=== PATIENT | female | born 1965 | race Caucasian/White ===

== ENCOUNTER 2019-07-17 09:56 | Outpatient (CLI) | payer OTHER, SELFPAY ==
[2019-07-17 10:36] LABS: Basophils Percent Auto 0.7 % (0.2-1.2); Eosinophils Absolute Auto 0.1 K/mm3 (0-0.3); Eosinophils Percent Auto 1.5 % (0-4.4); Hematocrit 40.9 % (37.0-47.0); Hemoglobin 13.6 g/dL (12.0-15.0); Immature Granulocyte Absolute 0.01 K/mm3 (0.00-0.031); Immature Granulocyte Percent A 0.2 % (0-0.5); Lymphocytes Absolute Auto 1.41 K/mm3 (0.9-3.2); Lymphocytes Percent Auto 34.9 % (18.3-44.2); Mean Corpuscular HGB Conc 33.3 g/dl (32-36); Mean Corpuscular Volume 87.2 fl (80-100); Mean Platelet Volume 10.1 fl (7.4-10.4); Monocytes Absolute Auto 0.4 K/mm3 (0.1-0.6); Monocytes Percent Auto 9.4 % (2.6-8.5); Neutrophils Absolute Auto 2.2 K/mm3 (1.3-6.7); Neutrophils Percent Auto 53.3 % (45.5-73.1); Platelet Count Result 276 k/mm3 (150-375); Red Blood Count 4.69 M/mm3 (4.2-5.4)
[2019-07-17 10:48] LABS: Alanine Aminotransferase 23 U/L (4-35); Albumin Level 4.4 g/dL (3.5-5.1); Alkaline Phosphatase 78 U/L (38-126); Aspartate Amino Transferase 23 U/L (14-36); Bilirubin,Total 0.4 mg/dL (0.2-1.3); Blood Urea Nitrogen 13 mg/dL (7-17); Calcium 9.6 mg/dL (8.4-10.2); Carbon Dioxide 29 mmol/L (22-30); Chloride 99 mmol/L (98-107); Cholesterol 211 mg/dL (0-200); Estimated Glomerular Filt Rate > 60; Glucose 90 mg/dL (65-105); HDL Direct 67 mg/dL; Potassium 3.9 mmol/L (3.4-5.0); Sodium 137 mmol/L (137-145); Triglycerides 40 mg/dL (<150)
[2019-07-17 10:49] LABS: Add Urine Microscopic? YES; Appearance Urine Clear (Clear); Bacteria Urine Trace /hpf; Bilirubin Urine Negative (Negative); Blood Urine Negative (Negative); Color Urine Straw (Yellow); Glucose Urine UA Negative (Negative); Ketones Urine Negative (Negative); Leukocyte Esterase Ur 2+ LEU/UL (NEGATIVE); Nitrate Urine Negative (Negative); Protein Urine Negative (Negative); RBC Urine 0-2 /hpf (0-2); Specific Grav Ur 1.008 (1.001-1.035); Squamous Epithelial Cell Urine Rare /hpf (Few); Urobilinogen Urine Negative mg/dL (<2.0)
[2019-07-17 10:59] LABS: LDL Cholesterol Direct 109 mg/dL
[2019-07-17 11:19] LABS: Total Triiodothyronine (T3) 1.36 NG/ML (0.97-1.69)
[2019-07-17 11:36] LABS: Free T4 Free Thyroxine 1.45 ng/mL (0.78-2.19); Vitamin D 25 Hydroxy 36.7 ng/mL
== END 2019-07-17 09:57 | disposition home or self-care (01) ==
DX: Z00.00 Encounter for general adult medical examination without abnormal findings (principal); I10 Essential (primary) hypertension
CPT/HCPCS: 36415; 80053; 80061; 81001; 82306; 84439; 84443; 84480; 85025; 86038

== ENCOUNTER 2020-02-09 06:54 | Outpatient (CLI) | payer OTHER, SELFPAY ==
[2020-02-09 07:34] LABS: Basophils Percent Auto 0.6 % (0.2-1.2); Eosinophils Absolute Auto 0.1 K/mm3 (0-0.3); Eosinophils Percent Auto 1.6 % (0-4.4); Hematocrit 40.8 % (37.0-47.0); Immature Granulocyte Absolute 0.02 K/mm3 (0.00-0.031); Immature Granulocyte Percent A 0.4 % (0-0.5); Lymphocytes Absolute Auto 1.67 K/mm3 (0.9-3.2); Lymphocytes Percent Auto 33.7 % (18.3-44.2); Mean Corpuscular HGB Conc 34.3 g/dl (32-36); Mean Corpuscular Hemoglobin 29.2 pg (26-34); Mean Corpuscular Volume 85.2 fl (80-100); Mean Platelet Volume 10.1 fl (7.4-10.4); Monocytes Absolute Auto 0.5 K/mm3 (0.1-0.6); Monocytes Percent Auto 9.9 % (2.6-8.5); Neutrophils Absolute Auto 2.7 K/mm3 (1.3-6.7); Neutrophils Percent Auto 53.8 % (45.5-73.1); Platelet Count Result 294 k/mm3 (150-375); Red Blood Count 4.79 M/mm3 (4.2-5.4); Red Cell Distribution Width 12.7 % (11.5-14.5)
[2020-02-09 07:38] LABS: Add Urine Microscopic? YES; Appearance Urine Clear (Clear); Bilirubin Urine Negative (Negative); Blood Urine Negative (Negative); Color Urine Colorless (Yellow); Glucose Urine UA Negative (Negative); Ketones Urine Trace mg/dL (Negative); Leukocyte Esterase Ur 1+ LEU/UL (NEGATIVE); Mucus Urine Rare /lpf; Nitrate Urine Negative (Negative); Protein Urine Negative (Negative); RBC Urine 0-2 /hpf (0-2); Specific Grav Ur 1.008 (1.001-1.035); Squamous Epithelial Cell Urine Rare /hpf (Few); Urobilinogen Urine Negative mg/dL (<2.0); WBC Urine 0-3 /hpf (0-3)
[2020-02-09 07:44] LABS: Alanine Aminotransferase 23 U/L (4-35); Albumin Level 4.3 g/dL (3.5-5.1); Alkaline Phosphatase 84 U/L (38-126); Anion Gap 9 mmol/L (8-16); Aspartate Amino Transferase 24 U/L (14-36); Bilirubin,Total 0.1 mg/dL (0.2-1.3); Blood Urea Nitrogen 18 mg/dL (7-17); Calcium 9.5 mg/dL (8.4-10.2); Carbon Dioxide 27 mmol/L (22-30); Chloride 102 mmol/L (98-107); Cholesterol 186 mg/dL (0-200); Estimated Glomerular Filt Rate > 60; Glucose 92 mg/dL (65-105); HDL Direct 65 mg/dL; Potassium 4.1 mmol/L (3.4-5.0); Sodium 138 mmol/L (137-145); Triglycerides 41 mg/dL (<150)
[2020-02-09 07:55] LABS: LDL Cholesterol Direct 91 mg/dL
[2020-02-09 08:17] LABS: Free T4 Free Thyroxine 1.32 ng/mL (0.78-2.19)
== END 2020-02-09 06:55 | disposition home or self-care (01) ==
DX: I10 Essential (primary) hypertension (principal)
CPT/HCPCS: 36415; 80053; 80061; 81001; 84439; 84443; 85025

== ENCOUNTER 2020-12-16 08:00 | Outpatient (CLI) | payer OTHER, SELFPAY ==
[2020-12-16 09:50] LABS: Basophils Absolute Auto 0.1 K/mm3 (0.0-0.1); Eosinophils Absolute Auto 0.1 K/mm3 (0-0.3); Eosinophils Percent Auto 1.7 % (0-4.4); Hematocrit 41.1 % (37.0-47.0); Hemoglobin 13.7 g/dL (12.0-15.0); Immature Granulocyte Absolute 0.01 K/mm3 (0.00-0.031); Immature Granulocyte Percent A 0.2 % (0-0.5); Lymphocytes Absolute Auto 1.62 K/mm3 (0.9-3.2); Mean Corpuscular HGB Conc 33.3 g/dl (32-36); Mean Corpuscular Hemoglobin 29.1 pg (26-34); Mean Corpuscular Volume 87.3 fl (80-100); Mean Platelet Volume 11.1 fl (7.4-10.4); Monocytes Absolute Auto 0.4 K/mm3 (0.1-0.6); Monocytes Percent Auto 9.2 % (2.6-8.5); Neutrophils Absolute Auto 2.6 K/mm3 (1.3-6.7); Neutrophils Percent Auto 53.9 % (45.5-73.1); Platelet Count Result 253 k/mm3 (150-375); Red Blood Count 4.71 M/mm3 (4.2-5.4); Red Cell Distribution Width 13.6 % (11.5-14.5); White Blood Count 4.8 K/mm3 (4.5-10.0)
[2020-12-16 09:56] LABS: Add Urine Microscopic? YES; Appearance Urine Clear (Clear); Bilirubin Urine Negative (Negative); Blood Urine Negative (Negative); Color Urine Straw (Yellow); Glucose Urine UA Negative (Negative); Ketones Urine Trace mg/dL (Negative); Leukocyte Esterase Ur Negative LEU/UL (NEGATIVE); Mucus Urine Few /lpf; Nitrate Urine Negative (Negative); Protein Urine Negative (Negative); RBC Urine >75 /hpf (0-2); Specific Grav Ur 1.008 (1.001-1.035); Squamous Epithelial Cell Urine Moderate /hpf (Few); Urobilinogen Urine Negative mg/dL (<2.0)
[2020-12-16 10:06] LABS: Alanine Aminotransferase 18 U/L (4-35); Albumin Level 4.2 g/dL (3.5-5.1); Alkaline Phosphatase 68 U/L (38-126); Anion Gap 10 mmol/L (8-16); Aspartate Amino Transferase 24 U/L (14-36); Bilirubin,Total 0.3 mg/dL (0.2-1.3); Blood Urea Nitrogen 10 mg/dL (7-17); Calcium 9.5 mg/dL (8.4-10.2); Carbon Dioxide 23 mmol/L (22-30); Chloride 107 mmol/L (98-107); Cholesterol 206 mg/dL (0-200); Estimated Glomerular Filt Rate > 60; Glucose 77 mg/dL (65-105); HDL Direct 60 mg/dL; Potassium 3.7 mmol/L (3.4-5.0); Sodium 140 mmol/L (137-145); Triglycerides 45 mg/dL (<150)
[2020-12-16 10:17] LABS: LDL Cholesterol Direct 96 mg/dL
== END 2020-12-16 08:01 | disposition home or self-care (01) ==
DX: I10 Essential (primary) hypertension (principal); Z00.00 Encounter for general adult medical examination without abnormal findings
CPT/HCPCS: 36415; 80053; 80061; 81001; 84443; 85025

== ENCOUNTER 2021-07-31 06:59 | Outpatient (CLI) | payer OTHER, SELFPAY ==
--- NOTE | ~2021-07-31 | CT_ITS ---
EXAMINATION: CT brain wo con DATE: 07/31/2021 07:14 INDICATION: Headache. Diplopia. TECHNIQUE: Computed tomography (CT) of the head was performed without intravenous contrast. The mA wa s adjusted according to patient size. Iterative reconstruction technique was employed. The dose-lengt h product was 605.33 mGy-cm. COMPARISON: None FINDINGS: There is no intracranial hemorrhage, acute infarction, or abnormal intracranial mass lesion . The ventricles are normal in size. The paranasal sinuses are clear. The mastoid air cells are arturo l. The orbits are normal. IMPRESSION: 1. Normal brain. Reviewed, dictated and finalized at location A. O PLANT SITE MANAGER IMPRESSION: 1. Normal brain.
== END 2021-07-31 07:00 | disposition home or self-care (01) ==
LOC: ANHIMG 07:02
DX: R51.9 Headache, unspecified (principal)
CPT/HCPCS: 70450

== ENCOUNTER 2022-01-16 08:06 | Outpatient (CLI) | payer OTHER, SELFPAY ==
[2022-01-16 08:43] LABS: Basophils Percent Auto 0.5 % (0.2-1.2); Eosinophils Absolute Auto 0.1 K/mm3 (0-0.3); Eosinophils Percent Auto 1.6 % (0-4.4); Hematocrit 41.7 % (37.0-47.0); Hemoglobin 13.6 g/dL (12.0-15.0); Immature Granulocyte Absolute 0.01 K/mm3 (0.00-0.031); Immature Granulocyte Percent A 0.2 % (0-0.5); Lymphocytes Absolute Auto 1.84 K/mm3 (0.9-3.2); Mean Corpuscular HGB Conc 32.6 g/dl (32-36); Mean Corpuscular Hemoglobin 28.6 pg (26-34); Mean Corpuscular Volume 87.6 fl (80-100); Mean Platelet Volume 9.8 fl (7.4-10.4); Monocytes Absolute Auto 0.5 K/mm3 (0.1-0.6); Monocytes Percent Auto 8.4 % (2.6-8.5); Neutrophils Absolute Auto 3.1 K/mm3 (1.3-6.7); Neutrophils Percent Auto 56.3 % (45.5-73.1); Platelet Count Result 301 k/mm3 (150-375); Red Blood Count 4.76 M/mm3 (4.2-5.4); Red Cell Distribution Width 13.3 % (11.5-14.5); White Blood Count 5.6 K/mm3 (4.5-10.0)
[2022-01-16 08:47] LABS: Appearance Urine Clear (Clear); Bilirubin Urine Negative (Negative); Blood Urine Negative (Negative); Color Urine Yellow (Yellow); Glucose Urine UA Negative (Negative); Ketones Urine Negative (Negative); Leukocyte Esterase Ur 1+ LEU/UL (NEGATIVE); Nitrate Urine Negative (Negative); Protein Urine Negative (Negative); Urobilinogen Urine 0.2 mg/dL (<2.0); pH Urine 6.5 (5.0-9.0)
[2022-01-16 08:52] LABS: RBC Urine 0-2 /hpf (0-2); Squamous Epithelial Cell Urine Rare /hpf (Few); WBC Urine 0-3 /hpf (0-3)
[2022-01-16 08:54] LABS: Alanine Aminotransferase 20 U/L (6-35); Albumin Level 4.6 g/dL (3.5-5.1); Alkaline Phosphatase 91 U/L (38-126); Anion Gap 10 mmol/L (8-16); Aspartate Amino Transferase 23 U/L (14-36); Bilirubin,Total 0.4 mg/dL (0.2-1.3); Blood Urea Nitrogen 9 mg/dL (7-17); Calcium 9.2 mg/dL (8.4-10.2); Carbon Dioxide 29 mmol/L (22-30); Chloride 100 mmol/L (98-107); Cholesterol 211 mg/dL (0-200); Estimated Glomerular Filt Rate > 60; Glucose 98 mg/dL (65-110); HDL Direct 50 mg/dL; Potassium 3.9 mmol/L (3.4-5.0); Sodium 139 mmol/L (137-145); Triglycerides 76 mg/dL (<150)
[2022-01-16 08:55] LABS: Add Urine Microscopic? YES
[2022-01-16 09:04] LABS: LDL Cholesterol Direct 107 mg/dL
== END 2022-01-16 08:07 | disposition home or self-care (01) ==
LOC: ANHLAB 08:10
DX: Z00.00 Encounter for general adult medical examination without abnormal findings (principal); R51.9 Headache, unspecified; I10 Essential (primary) hypertension
CPT/HCPCS: 36415; 80053; 80061; 81001; 84439; 84443; 85025

== ENCOUNTER 2022-11-29 11:18 | Outpatient (CLI) | payer OTHER, SELFPAY ==
[2022-11-29 12:09] LABS: Basophils Percent Auto 0.6 % (0.2-1.2); Eosinophils Absolute Auto 0.1 K/mm3 (0-0.3); Eosinophils Percent Auto 1.4 % (0-4.4); Hematocrit 40.3 % (37.0-47.0); Hemoglobin 13.3 g/dL (12.0-15.0); Immature Granulocyte Absolute 0.01 K/mm3 (0.00-0.031); Immature Granulocyte Percent A 0.2 % (0-0.5); Lymphocytes Absolute Auto 1.69 K/mm3 (0.9-3.2); Lymphocytes Percent Auto 33.9 % (18.3-44.2); Mean Corpuscular Hemoglobin 29.1 pg (26-34); Mean Corpuscular Volume 88.2 fl (80-100); Mean Platelet Volume 10.2 fl (7.4-10.4); Monocytes Absolute Auto 0.4 K/mm3 (0.1-0.6); Monocytes Percent Auto 7.8 % (2.6-8.5); Neutrophils Absolute Auto 2.8 K/mm3 (1.3-6.7); Neutrophils Percent Auto 56.1 % (45.5-73.1); Platelet Count Result 294 k/mm3 (150-375); Red Blood Count 4.57 M/mm3 (4.2-5.4); Red Cell Distribution Width 13.2 % (11.5-14.5)
[2022-11-29 12:15] LABS: Appearance Urine Clear (Clear); Bilirubin Urine Negative (Negative); Blood Urine Negative (Negative); Color Urine Yellow (Yellow); Glucose Urine UA Negative (Negative); Ketones Urine Negative (Negative); Leukocyte Esterase Ur Negative LEU/UL (NEGATIVE); Nitrate Urine Negative (Negative); Protein Urine Negative (Negative); Specific Grav Ur 1.013 (1.001-1.035); Urobilinogen Urine 0.2 mg/dL (<2.0); pH Urine 5.5 (5.0-9.0)
[2022-11-29 12:28] LABS: Alanine Aminotransferase 24 U/L (6-35); Albumin Level 4.3 g/dL (3.5-5.1); Alkaline Phosphatase 89 U/L (38-126); Anion Gap 9 mmol/L (8-16); Aspartate Amino Transferase 24 U/L (14-36); Bilirubin,Total 0.4 mg/dL (0.2-1.3); Blood Urea Nitrogen 15 mg/dL (7-17); Calcium 8.9 mg/dL (8.4-10.2); Carbon Dioxide 26 mmol/L (22-30); Chloride 104 mmol/L (98-107); Cholesterol 196 mg/dL (0-200); Estimated Glomerular Filt Rate > 60; Glucose 84 mg/dL (65-110); HDL Direct 59 mg/dL; Potassium 3.6 mmol/L (3.4-5.0); Sodium 139 mmol/L (137-145); Triglycerides 67 mg/dL (<150)
[2022-11-29 12:37] LABS: Add Urine Microscopic? NO
[2022-11-29 12:39] LABS: LDL Cholesterol Direct 97 mg/dL
[2022-11-29 12:55] LABS: Free T4 Free Thyroxine 1.44 ng/mL (0.78-2.19)
== END 2022-11-29 11:19 | disposition home or self-care (01) ==
DX: Z00.00 Encounter for general adult medical examination without abnormal findings (principal); E66.9 Obesity, unspecified; I10 Essential (primary) hypertension
CPT/HCPCS: 36415; 80053; 80061; 81003; 84439; 84443; 85025

== ENCOUNTER 2024-01-08 08:49 | Outpatient (CLI) | payer OTHER, SELFPAY ==
[2024-01-08 10:01] LABS: Appearance Urine Clear (Clear); Bacteria Urine None Seen /hpf; Bilirubin Urine Negative (Negative); Blood Urine Negative (Negative); Color Urine Yellow (Yellow); Glucose Urine UA Negative (Negative); Ketones Urine Negative (Negative); Leukocyte Esterase Ur Trace LEU/UL (Negative); Nitrate Urine Negative (Negative); Non Pathogenic Casts 0-2; Protein Urine Negative (Negative); RBC Urine 0-2 /hpf (0-2); Specific Grav Ur 1.012 (1.001-1.035); Squamous Epithelial Cell Urine None Seen /hpf (Few); Urobilinogen Urine 0.2 mg/dL (<2.0); WBC Urine 0-5 /hpf (0-3); pH Urine 7.5 (5.0-9.0)
[2024-01-08 10:07] LABS: Basophils Percent Auto 0.6 % (0.2-1.2); Eosinophils Absolute Auto 0.1 K/mm3 (0-0.3); Eosinophils Percent Auto 1.3 % (0-4.4); Hematocrit 39.5 % (37.0-47.0); Hemoglobin 12.9 g/dL (12.0-15.0); Immature Granulocyte Absolute 0.01 K/mm3 (0.00-0.031); Immature Granulocyte Percent A 0.2 % (0-0.5); Lymphocytes Absolute Auto 1.71 K/mm3 (0.9-3.2); Lymphocytes Percent Auto 36.4 % (18.3-44.2); Mean Corpuscular HGB Conc 32.7 g/dl (32-36); Mean Corpuscular Hemoglobin 29.1 pg (26-34); Mean Corpuscular Volume 89.2 fl (80-100); Mean Platelet Volume 10.6 fl (7.4-10.4); Monocytes Absolute Auto 0.4 K/mm3 (0.1-0.6); Monocytes Percent Auto 8.1 % (2.6-8.5); Neutrophils Absolute Auto 2.5 K/mm3 (1.3-6.7); Neutrophils Percent Auto 53.4 % (45.5-73.1); Platelet Count Result 279 k/mm3 (150-375); Red Blood Count 4.43 M/mm3 (4.2-5.4); Red Cell Distribution Width 13.7 % (11.5-14.5); White Blood Count 4.7 K/mm3 (4.5-10.0)
[2024-01-08 10:16] LABS: Add Urine Microscopic? YES
[2024-01-08 10:25] LABS: Alanine Aminotransferase 23 U/L (6-35); Albumin Level 4.1 g/dL (3.5-5.1); Alkaline Phosphatase 91 U/L (38-126); Anion Gap 7 mmol/L (4-12); Aspartate Amino Transferase 23 U/L (14-36); Bilirubin,Total 0.4 mg/dL (0.2-1.3); Blood Urea Nitrogen 16 mg/dL (7-17); Calcium 9.1 mg/dL (8.4-10.2); Carbon Dioxide 30 mmol/L (22-30); Chloride 102 mmol/L (98-107); Cholesterol 168 mg/dL (0-200); Estimated Glomerular Filt Rate > 60; Glucose 84 mg/dL (65-110); HDL Direct 48 mg/dL; Sodium 139 mmol/L (137-145); Triglycerides 81 mg/dL (<150)
[2024-01-08 10:35] LABS: LDL Cholesterol Direct 94 mg/dL
[2024-01-08 10:48] LABS: Free T4 Free Thyroxine 1.23 ng/mL (0.78-2.19)
== END 2024-01-08 08:50 | disposition home or self-care (01) ==
DX: Z00.00 Encounter for general adult medical examination without abnormal findings (principal); I10 Essential (primary) hypertension
CPT/HCPCS: 36415; 80053; 80061; 81001; 84439; 84443; 85025

== ENCOUNTER 2024-12-22 08:18 | Outpatient (CLI) | payer OTHER, SELFPAY ==
--- OUTSIDE RECORDS SUMMARY | 2024-12-22 08:22 | XMS_ITS | Referral Summary ---
Author Organization [facility] Address [address] [phone] Care Team Providers Care Customer Service Consultant Name Role Phone Bennett Patricio MD Primary Care Provide r Allergies Active Allergy Reactions Criticality Noted Date Comments Meperidine Mental status changes Low 02/19/2018 Penicillins Anaphylaxis High 02/19/2018 Medications amLODIPine (NORVASC) 10 mg tablet Take 0.5 tablets (5 mg total) by mouth daily Active Active Problems Problem Noted Date Diagnosed Date Encounter for follow-up surveillance of colon ca ncer 02/07/2018 Overview (02/07/2018): Added automatically from request for surgery [id number] Social History Tobacco Use Types Packs/Day Years Used Date Smoking Tobacco: Never Smokeless Tobacco: Never Personal Safety Answer Date Recorded Have you ever been in or are you currently in a harmful physical or emotional relationship or is someone making you feel afraid or unsafe? Denies 05/15/2023 Comments No Sex and Gender Information Value Date Recorded Sex Assigned at Not on file Legal Sex Female 2:17 PM CODE AND TEST CLERK Gender Identity Not on file Sexual Orientation Not on file Last Filed Vital Signs Vital Sign Reading Time Taken Comments Blood Pressure 129/97 05/15/2023 2:10 PM CODE AND TEST CLERK Pulse 70 05/15/2023 2:10 PM CODE AND TEST CLERK Temperature 35.9 C (96.7 F) 05/15/2023 1:47 PM CODE AND TEST CLERK Respiratory Rate 17 05/15/2023 2:10 PM CODE AND TEST CLERK Oxygen Saturation 100% 05/15/2023 2:10 PM CODE AND TEST CLERK Inhaled Oxygen Concentration - - Weight 95.3 kg (210 lb) 03/21/2018 4:41 PM CDT Height 162.6 cm (5' 4) 03/21/2018 4:41 PM CDT Body Mass Index 36.05 03/21/2018 4:41 PM CDT Plan of Treatment Not on file Procedures Procedure Name Priority Date/Time Associated Diagnosis Comments SCREENING MAMMOGRAM BILATERAL W YFN Schedule Routine, Read Routine (OP Routine) 04/03/2024 10:53 AM CDT Screening mammogram, encounter for COLONOSCOPY 05/15/2023 1:07 PM CODE AND TEST CLERK from Last 3 Months or Most Recently Relevant to Health Maintenance Results * Screening Mammogram Bilateral W Yfn (04/03/2024 10:53 AM CDT) Anatomical Region Laterality Modality Breast Bilateral Mammography Narrative 04/03/2024 4:23 PM CDT Examination: Screening Mammogram Bilateral W Yfn: 04/03/24 Clinical: Screening mammogram, encounter for. Prior Study Comparisons: Comparison was made to the prior available relevant studies at the time of interpretation. Findings: Screening Mammogram Bilateral W Yfn Bilateral No significant masses, malignant type calcifications, skin thickening, nipple retraction, or significant lymphadenopathy is noted in either breast. Computer Aided Detection was utilized for the interpretation of this study. There are scattered areas of fibroglandular density. The patient will be notified of results by letter. Impression: BI-RADS ATLAS category (overall): 2 - Benign There is no mammographic evidence of malignancy. Routine Screening Mammogram in 1 Yr is recommended for bilateral Overall Assessment: 2 - Benign us Self Screening Mammogram IMG MAMMO PROCEDURES Fi nal Result * COLONOSCOPY (05/15/2023 1:07 PM CODE AND TEST CLERK) Anatomical Region Laterality Modality Other Narrative Procedure Note Fred Rosenthal MD - 05/15/2023 1:07 PM CST [facility] Endoscopy Lab Patient Name: Verna Ratliff Procedure Date: 05/15/2023 1:07 PM Date of : 1965 Admit Type: Outpatient Age: 58 Gender: Female Attending MD: Fred Rosenthal M.D. Procedure: Colonoscopy Indications: Screening for colorectal malignant neoplasm,Screening in patient at increased risk: Family history of 1st-degree relative with colorectal cancer, Surveillance: Personal history of adenomatouspolyps on last colonoscopy > 5 years ago Providers: Fred Rosenthal M.D. Referring MD: Bennett Patricio M.D. Medicines: Monitored Anesthesia Care Complications: No immediate complications. Procedure: Pre-Anesthesia Assessment: - Mental Status Examination: alert and oriented. Airway Examination: normal oropharyngeal airway and neck mobility. Respiratory Examination: clear to auscultation. CV Examination: normal. Abdominal Examination: bowel sounds present, abdomen soft and non-tender, no masses or organomegaly noted. - ASA Grade Assessment: II - A patient with mild systemic disease. - The risks and benefits of the procedure and the sedation options and risks were discussed with the patient. All questions were answered and informed consent was obtained. The benefits, risks and alternatives of theprocedure and sedation were discussed and informed consentwas obtained. All questions were answered. Please referto the signed informed consent document in the medical record. The scope was passed under direct vision.The Colonoscope was introduced through the anus and advanced to the the terminal ileum. The colonoscopy was performed without difficulty. The patient tolerated the procedure well. The quality of thebowel preparation was evaluated using the BBPS (BostonBowel Preparation Scale) with scores of: Right Colon = 2 (minor amount of residual staining, small fragmentsof stool and/or opaque liquid, but mucosa seen well), Transverse Colon = 3 (entire mucosa seen well withno residual staining, small fragments of stool oropaque liquid) and Left Colon = 2 (minor amount ofresidual staining, small fragments of stool and/or opaque liquid, but mucosa seen well). The total BBPS score equals 7. The quality of the bowel preparation was good. The terminal ileum, ileocecal valve,appendiceal orifice, and rectum were photographed. Findings: The digital rectal exam findings include non-thrombosed external hemorrhoids. Pertinent negatives include normal sphincter tone and no palpable rectal lesions. The terminal ileum appeared normal. A 2 mm polyp was found in the cecum. The polyp was sessile. The polyp was removed with a cold biopsy forceps. Resection and retrieval were complete. A 2 mm polyp was found in the ascending colon. The polyp was sessile. The polyp was removed with a cold biopsy forceps. Resection and retrieval were complete. Four sessile polyps were found in the sigmoid colon. The polyps were1 to 3 mm in size. These polyps were removed with a cold biopsy forceps and a cold snare. Resection and retrieval were complete. The retroflexed view of the distal rectum and anal verge was normaland showed no anal or rectal abnormalities. Impression: - Non-thrombosed external hemorrhoids found ondigital rectal exam. - The examined portion of the ileum was normal. - One 2 mm polyp in the cecum, removed with a cold biopsy forceps. Resected and retrieved. - One 2 mm polyp in the ascending colon, removedwith a cold biopsy forceps. Resected and retrieved. - Four 1 to 2 mm polyps in the sigmoid colon,removed with a cold biopsy forceps and removed with a cold snare. Resected and retrieved. Recommendation: - Await pathology results. - Resume previous diet. - Continue present medications. - Repeat colonoscopy in 3 - 5 years forsurveillance based on pathology results. Fred Rosenthal MD Fred Rosenthal M.D. 05/15/2023 1:47:30 PM This report has been signed electronically. Number of Addenda: 0 Note Initiated On: 05/15/2023 1:07 PM Scope Withdrawal Time: 0 hours 14 minutes 37 seconds Estimated Blood Loss: Estimated blood loss: none. Fred Rosenthal MD ENDOSCOPY PROCEDURES Fi nal Result from Last 3 Months or Most Recently Relevant to Health Maintenance Insurance [facility] Member Subscriber Plan / Payer ( fective 2014-Present) Name:Verna Ratliff A Relation to Subscriber:Self Name:RADHAVERNA A Payer ID:[id number] (NAIC) Type:[facility] H[facility]/PPO Address: [place] [phone] [facility] Advance Directives For more information, please contact: [phone] * Full Code (Latest Code Status on File) Date Activated Date Inactivated Comments 02/19/2018 12:04 PM 02/19/2018 5:02 PM Care Teams Customer Service Consultant Relationship Specialty Start Date End Date Bennett Patricio MD PCP - General 03/11/19
--- OUTSIDE RECORDS SUMMARY | 2024-12-22 08:22 | XMS_ITS | Clinical Summary ---
Author Organization [facility] Address [address] [place] [id number] Care Team Providers Care Cook Dessert Name Role Phone Unavailable Primary Care Provider Unavailabl e Social History Tobacco Use Types Packs/Day Years Used Date Smoking Tobacco: Never Assessed Comments Unknown Sex and Gender Information Value Date Recorded Sex Assigned at Not on file Legal Sex Female 4:05 PM REJECTED ITEMS CLERK Gender Identity Not on file Sexual Orientation Not on file Plan of Treatment Health Maintenance Due Date Last Done Comments Hepatitis C Virus (HCV) Screening 1965 TdaP Immunization 1965 Hepatitis B Immunization (1 of 3 - 19+ 3-dose series) 1986 Pap Smear 1988 Cervical Cancer Screening (CCS) 1997 HPV/Cotest 1997 Colonoscopy 2012 Colorectal Cancer Screening 2012 Cologuard 2017 Immunochemical Fecal Occult Blood 2017 Mammogram 2017 Pneumococcal Immunization (5 0+ years) (1 of 1 - PCV) 2017 Zoster Immunization (1 of 2) 2017 Influenza Immunization (#1) 2024 SARS-COV-2 Immunization ( - season) 2024 Respiratory Syncytial Virus (RSV) Immunization (Adult) (1 - 1-dose 75+ series) 2042 Meningococcal Immunization (ACWY) Aged Out No longer eligible based on patient's age to complete this topic Pneumococcal Immunization Combined Aged Out No longer eligible based on patient's age to complete this topic Rotavirus Immunization Aged Out No lo nger eligible based on patient's age to complete this topic Insurance [employer] on file
--- OUTSIDE RECORDS SUMMARY | 2024-12-22 08:22 | XMS_ITS | Clinical Summary ---
Author Organization [facility] Address [address] [phone] Care Team Providers Care Yield Analyst Name Role Phone Bennett Patricio MD Primary [...] (02/07/2018): Added automatically from request for surgery [id number] Surgical History Surgery Date Site/Laterality Comments COMBINED HYSTEROSCOPY DIAGNOSTIC / D&C 06/17/2013 - 06/16/2014 and endometrial ablation HYSTERECTOMY Medical History Medical History Date Comments Hypertension Family History Medical History Relation Name Comments Lung cancer Father Melanoma Father Breast cancer Maternal Grandmother Bilateral breast cancer Mother Breast cancer Mother Breast cancer Mother's Sister 1 Coronary artery disease Mother's Sister 3 Relation Name Status Comments Daughter Alive Father Father's Sister 1 Other unknown pa ternal family history Father's Sister 2 Other unknown pa ternal family history Father's Sister 3 Other unknown pa ternal family history Maternal Grandmother (Age 69) Mother Alive Mother's Sister 1 (Age 65) Mother's Sister 2 Alive Mother's Sister 3 (Age 70) Paternal Grandmother (Age 78) Sister Alive Social History Tobacco Use Types Packs/Day Years [...] on file Legal Sex Female 2:17 PM HOD CARRIER Gender Identity Not on file Sexual Orientation Not on file Obstetrics History Last Filed Vital Signs Vital Sign Reading Time Taken Comments Blood Pressure 129/97 05/15/2023 2:10 PM HOD CARRIER Pulse 70 05/15/2023 2:10 PM HOD CARRIER Temperature 35.9 C (96.7 F) 05/15/2023 1:47 PM HOD CARRIER Respiratory Rate 17 05/15/2023 2:10 PM HOD CARRIER Oxygen Saturation 100% 05/15/2023 2:10 PM HOD CARRIER Inhaled Oxygen Concentration - - Weight 95.3 kg (210 lb) 03/21/2018 4:41 PM CDT Height 162.6 cm (5' 4) 03/21/2018 4:41 PM CDT Body Mass Index 36.05 03/21/2018 4:41 PM CDT Plan of Treatment Health Maintenance Due Date Last Done Comments Depression Screening 1965 Hepatitis C Screening 1965 Hepatitis B Screening 1985 Regular Well Visit/Exam 18-64 1985 Covid-19 Vaccine ( season) 2024 06/29/2022, 06/28/2020, 06/07/2020 Influenza Vaccine (Season Ended) 2025 03/17/2015 Breast Cancer Screening-Mammogram 04/03/2025 04/03/2024, 04/03/2023, 2022, Additional history exists DTaP/Tdap/Td Vaccine (3 - Td or Tdap) 08/22/2028 08/22/2018, 01/09/2017 Colon Cancer Screening-Colonoscopy 05/15/2033 05/15/2023, 02/19/2018 Zoster Vaccine Completed 07/16/2018, 02/12/2018 Colon Cancer Screening-CT Colonography Discontinued 05/15/2023, 02/19/2018 Colon Cancer Screening-DNA Stool Discontinued 05/15/2023, 02/19/2018 Colon Cancer Screening-FIT Discontinued 05/15/2023, Colon Cancer Screening-Sigmoidoscopy Discontinued 05/15/2023, 02/19/2018 Pneumococcal vaccine <65 Aged Out No longer eligible based on patient's age to complete this topic Procedures Procedure Name Priority Date/Time Associated Diagnosis Comments SCREENING MAMMOGRAM BILATERAL W YFN Schedule Routine, Read Routine (OP Routine) 04/03/2024 10:53 AM CDT Screening mammogram, encounter for COLONOSCOPY 05/15/2023 1:07 PM HOD CARRIER from Last 3 Months or Most Recently [...] nal Result * COLONOSCOPY (05/15/2023 1:07 PM HOD CARRIER) Anatomical Region Laterality Modality Other Narrative Procedure Note Fred Rosenthal MD - 05/15/2023 1:07 PM CST [facility] Endoscopy Lab Patient Name: Verna Ratliff Procedure [...] Most Recently Relevant to Health Maintenance Insurance [facility] Advance Directives For more information, please contact: [phone] * Full Code (Latest Code Status on File) Date Activated Date Inactivated Comments 02/19/2018 12:04 PM 02/19/2018 5:02 PM Care Teams Yield Analyst Relationship Specialty Start Date End Date Bennett Patricio MD PCP - General 03/11/19
--- OUTSIDE RECORDS SUMMARY | 2024-12-22 08:23 | XMS_ITS | Clinical Summary ---
Author Organization [facility] [employer] Address [address] [place] [address] Care Team Providers Care Breaker Tender Name Role Phone Bennett Patricio MD Primary Care Provider [phone] Bennett Patricio MD Unavailable [phone] Source Comments [facility],non-owned Affiliates and Associated Physician Practices is amultiple site organization consisting of ambulatory clinics and hospital sitesin [place], [place], [place] and [place]. This disclosure is being madepursuant to the Care Everywhere program and may not contain all information available regarding this patient. Last updated 18.[facility] [employer] Allergies Active Allergy Reactions Criticality Noted Date Comments Meperidine Other 08/22/2018 Change in mood, pt states, mood is more violent Penicillins Anaphylaxis High 08/22/2018 Medications * Be aware that medications may not be up to date on this document. Alwaysverify current medications with the patient. naproxen (NAPROSYN) 250 MG tablet Take 1 tablet by mouth 2 times daily 60 tablet 08/22/2018 Active Cholecalciferol 50 MCG (1999) Take by mouth. Active biotin 2.5 MG capsule Take 2 (two) capsules by mouth once daily Active amLODIPine (Norvasc) 5 MG tablet Take 1 (one) tablet by mouth once daily 90 tablet 4 08/19/2024 Active Active Problems Problem Noted Date Diagnosed Date Essential hypertension 08/19/2024 Assessment & Plan (08/19/2024 11:30 AM BOOKING CLERK): Will continue the amlodipine 5 mg a day. She is doing well. General medical exam 08/19/2024 Assessment & Plan (08/19/2024 11:30 AM BOOKING CLERK): She is due for her well woman exam soon and is up today on colonoscopy and mammogram. Resolved Problems Problem Noted Date Diagnosed Date Resolved Date [facility] 08/19/2024 Overview (08/19/2024): Added automatically from request for surgery [id number] S/P laparoscopic hysterectomy 03/31/2015 08/19/2024 Immunizations Immunization Administration Dates Next Due INFLUENZA VACCINE, TRIV. (AF LURIA, FLUZONE TRIVALENT; 6MO+) (IIV3) 03/17/2015 COVID PFIZER 12+YR 30MCG/0.3mL 04/10/2024,2022 COVID PFIZER BIVALENT 12Y+ 30mcg/0.3ML Covid Pfizer primary monoval ent 12+ yr 0.3mL Purple cap 04/14/2021,06/28/2020,06/07/2020 INFLUENZA VACCINE, QUADR. (F LUZONE; FLULAVAL; FLUARIX; AFLURIA QUADRIVALENT; 6MO+), 0.5 ML (IIV4) 04/04/2023,03/17/2021 INFLUENZA VACCINE, TRIV. (FL UZONE; FLULAVAL; FLUARIX; AFLURIA TRIVALENT; 6MO+), 0.5 ML (IIV3) 03/27/2024 TDAP (7yrs+) 08/22/2018 TDAP, HISTORIC VACCINE 01/09/2017 Zoster Hzv Vacc Recombinant Inj Im 07/16/2018, Social History Tobacco Use Types Packs/Day Years Used Date Smoking Tobacco: Never Smokeless Tobacco: Never Tobacco Cessation:Counseling Given: No Alcohol Use Standard Drinks/Week Comments No 0 (1 standard drink = 0.6 oz pur e alcohol) PHQ-2 Answer Date Recorded Patient Health Questionnaire-2 Score 0 08/19/2024 Comments Unknown Sex and Gender Information Value Date Recorded Sex Assigned at Not on file Legal Sex Female 4:09 AM BOOKING CLERK Gender Identity Not on file Sexual Orientation Not on file Last Filed Vital Signs Vital Sign Reading Time Taken Comments Blood Pressure 136/66 08/19/2024 11:04 AM BOOKING CLERK Pulse 89 08/19/2024 11:04 AM BOOKING CLERK Temperature 36.5 C (97.7 F) 08/22/2018 7:38 AM BOOKING CLERK Respiratory Rate 20 08/22/2018 7:38 AM BOOKING CLERK Oxygen Saturation 98% 08/19/2024 11:04 AM BOOKING CLERK Inhaled Oxygen Concentration - - Weight 106.8 kg (235 lb 8 oz) 08/19/2024 11:04 A M BOOKING CLERK Height 162.6 cm (5' 4) 08/19/2024 11:04 AM BOOKING CLERK Body Mass Index 40.42 08/19/2024 11:04 AM BOOKING CLERK Plan of Treatment Upcoming Encounters Date Type Department Care Team (Late st Contact Info) Description 08/25/2025 10:30 AM CDT Office Visit [facility] - Internal Medicine [address] [place] [phone] Bennett Patricio MD [address] [place] [phone] Health Maintenance Due Date Last Done Comments COLOGUARD (AGES 45-75) - COLON CA SCREENING 1967 CT COLONOGRAPHY - COLON CA SCREENING 1965 FIT - COLON CA SCREENING 1965 FLEX SIG - COLON CA SCREENING 1965 LIPID TESTING 1967 HIV SCREENING 1982 HEPATITIS C SCREENING 03/28/1985 HEPATITIS B VACCINE (1 of 3 - 19+ 3-dose series) 1986 PNEUMOCOCCAL VACCINE 50+ (1 of 1 - PCV) 2017 SCREENING FOR DIABETES 08/19/2024 08/22/2018 INFLUENZA VACCINE (#1) 2025 , 04/04/2023, 03/17/2021, Additional history exists MAMMOGRAM 04/03/2026 04/03/2024, 03/17, 04/03/2024, Additional history exists DTAP/TDAP/TD VACCINES (3 - Td or Tdap) 08/22/2028 08/22/2018, 01/09/2017 COLON MONITORING 05/15/2033 05/15/2023 COLONOSCOPY - COLON CA SCREENING 05/15/2033 05/15/2023 Colorectal Cancer Screening 05/15/2033 ZOSTER VACCINE Completed 07/16/2018, 02/12/2018 COVID-19 VACCINE Completed 04/10/2024, 03/2023, 06/29/2022, Additional history exists DEPRESSION SCREENING Completed 08/19/2024 HIB VACCINE Aged Out No longer eligi ble based on patient's age to complete this topic HPV VACCINE Aged Out No longer eligi ble based on patient's age to complete this topic MENINGOCOCCAL (Group B) VACCINE SHARED DECISION-MAKING Aged Out No longer eligible based on patient's age to complete this topic MENINGOCOCCAL GROUPS A/C/Y/W VACCINE Aged Out No longer eligible based on patient's age to complete this topic PAP SMEAR Discontinued Procedures Procedure Name Priority Date/Time Associated Diagnosis Comments MAMMOGRAM 04/03/2024 COMPREHENSIVE METABOLIC PANEL STAT 08/22/2018 8:43 AM BOOKING CLERK from Last 3 Months or Most Recently Relevant to Health Maintenance Results * MAMMOGRAM (04/03/2024) Anatomical Region Laterality Modality Other 04/03/2024 Narrative 04/03/2024 Ordered by an unspecified provider. us Scanned Document SCANNING ONLY Final Result * (ABNORMAL) COMPREHENSIVE METABOLIC PANEL (08/22/2018 8:43 AM BOOKING CLERK) Glucose 94 74 - 106 mg/dL 08/22/2018 9:04 AM BOOKING CLERK [facility] Sodium 143 136 - 145 mmol/L 08/22/2018 9:04 AM BOOKING CLERK [facility] Potassium 4.4 3.5 - 5.1 mmol/L 08/22/2018 9:04 AM BOOKING CLERK [facility] Chloride 107 98 - 107 mmol/L 08/22/2018 9:04 AM BOOKING CLERK [facility] CO2 26 23 - 31 mmol/L 08/22/2018 9:04 AM BOOKING CLERK [facility] Calcium 9.4 8.4 - 10.2 mg/dL 08/22/2018 9:04 AM [facility] Anion Gap 10 8 - 16 mmol/L 08/22/2018 9:04 AM [facility] BUN 20 9.8 - 20.1 mg/dL 08/22/2018 9:04 AM [facility] Creatinine 0.45(L) 0.55 - 1.02 mg/dL 08/22/2018 9:04 AM [facility] Alkaline Phosphatase 79 40 - 150 U/L 08/22/2018 9:04 AM [facility] ALT 38 13 - 61 U/L 08/22/2018 9:04 AM [facility] AST 59(H) 5 - 34 U/L 08/22/2018 9:04 AM [facility] Protein Total 8.0 6.4 - 8.3 gm/dL 08/22/2018 9:04 AM [facility] Albumin 3.9 3.5 - 5.2 gm/dL 08/22/2018 9:04 AM [facility] Bilirubin Total 0.2 0.2 - 1.0 mg/dL 08/22/2018 9:04 AM [facility] eGFR by MDRD >60 >60 mL/min/1.7 3m2 08/22/2018 9:04 AM [facility] eGFR by MDRD >60 >60 mL/min/1.7 3m2 08/22/2018 9:04 AM [facility] Blood BLOOD SPECIMEN / Unknown Venipuncture / Unknown 08/22/2018 8:43 AM BOOKING CLERK 08/22/2018 8:46 AM [facility] John Fernandes MD LAB - CHEMISTRY ORDERABLES Cristiane gomez Result [facility] [address] [place] [address] from Last 3 Months or Most Recently Relevant to Health Maintenance Insurance [facility] TP [employer] LIABILITY Democrat Liability [facility] Care Teams Breaker Tender Relationship Specialty Start Date End Date Bennett Patricio MD [address] [place], [place] [address] [address] [place] [phone] PCP - General Internal Medicine 08/07/24 Bennett Patricio MD [address] [place], [place] [address] [address] [place] [phone] PCP - Attributed-[facility] Commercial 08/15/24
--- OUTSIDE RECORDS SUMMARY | 2024-12-22 08:23 | XMS_ITS | Clinical Summary ---
Author Organization [facility] Address [address] [place] [address] Phone Care Team Providers Care Marketing Researcher Name Role Phone Unavailable Primary Care Provider Unavailabl e Allergies Active Allergy Reactions Criticality Noted Date Comments Meperidine Hcl Other (See Comments) 02/25/2015 Hot feeling, aggitation Penicillins Rash,Swelling Low 02/25/2015 Medications ascorbic acid (VITAMIN C) 1,000 mg Tablet Take 1,000 mg by mouth 2 times daily. Active calcium-vitamin D3 (CALTRATE 600+D) 600 mg(1,500mg) -200 unit Tablet Take by mouth. Active magnesium oxide (MAG-OX) 400 mg tablet Take 400 mg by mouth daily. Active Biotin 2,500 mcg Capsule Take 2 Capsule by mouth daily. Active cholecalciferol , Vitamin D3, (VITAMIN D3) 2,000 unit TabletIndicatio ns:1-2 tabs daily Take by mouth. Active naproxen (NAPROSYN) 250 mg tablet Take 250 mg by mouth 2 times daily with meals. Active docusate sodium (COLACE) 100 mg capsule Take 1 Capsule (100 mg) by mouth 2 times daily. 60 Capsule 1 03/31/2015 Active Active Problems Problem Noted Date Diagnosed Date Gross hematuria 04/26/2015 Lesion of bladder 04/19/2015 s/p TLH/BS 03/31/2015 Urinary urgency 02/28/2015 Resolved Problems Problem Noted Date Diagnosed Date Resolved Date Heavy menstrual bleeding 02/28/201508/2014 Dysmenorrhea 02/28/2015 04/19/2015 Dyspareunia 02/28/2015 04/19/2015 Immunizations Immunization Administration Dates Next Due Influenza Seasonal Unspecified Formulation IM Family History Medical History Relation Name Comments Diabetes Other Stroke Other Relation Name Status Comments Other Social History Tobacco Use Types Packs/Day Years Used Date Smoking Tobacco: Never Alcohol Use Standard Drinks/Week Comments No 0 (1 standard drink = 0.6 oz pur e alcohol) Comments No Sex and Gender Information Value Date Recorded Sex Assigned at Not on file Legal Sex Female 4:06 AM [employer] Gender Identity Not on file Sexual Orientation Not on file Last Filed Vital Signs Vital Sign Reading Time Taken Comments Blood Pressure 120/72 05/30/2015 12:55 PM [employer] Pulse 86 03/31/2015 9:00 PM CDT Temperature 37.1 C (98.8 F) 03/31/2015 9:00 PM CDT Respiratory Rate 16 03/31/2015 9:00 PM CDT Oxygen Saturation 97% 03/31/2015 9:00 PM CDT Inhaled Oxygen Concentration - - Weight 99.8 kg (220 lb) 05/30/2015 12:55 PM [employer] Height 162.6 cm (5' 4) 05/30/2015 12:55 PM [employer] Body Mass Index 37.76 05/30/2015 12:55 PM [employer] Plan of Treatment Health Maintenance Due Date Last Done Comments DTAP/TDAP/TD VACCINES (1 - Tdap) 1986 HEPATITIS B VACCINES (1 of 3 - 19+ 3-dose series) 1986 COLORECTAL SCREENING 2012 Colorectal Cancer Screening 2012 FIT-DNA Q 3 years 2012 FIT/FOBT Q 1 year 2012 Flex Sig/CT Colonography Q 5 years 2012 BREAST CANCER SCREENING 03/21/2017 03/21/20 16, 12/15/2014 (Previously completed) ZOSTER VACCINE (1 of 2) 2017 INFLUENZA VACCINE (#1) 2025 03/17/2015 Procedures Procedure Name Priority Date/Time Associated Diagnosis Comments MAMMO SCREEN BILAT W OR WO CAD Routine 03/21/2016 from Last 3 Months or Most Recently Relevant to Health Maintenance Results * MAMMO DIGITAL SCREEN BILAT (03/21/2016) Anatomical Region Laterality Modality Breast Bilateral Other Sabas Ortiz MD MAMMO ORDERABLES Edited Result - Final from Last 3 Months or Most Recently Relevant to Health Maintenance Insurance [facility] OPTIONS PPO [id number] Advance Directives For more information, please contact: [phone] * Full Code (Latest Code Status on File) Date Activated Date Inactivated Comments 03/31/2015 12:28 PM 04/01/2015 2:32 AM * Full Code Date Activated Date Inactivated Comments 03/31/2015 11:51 AM 03/31/2015 12:28 PM
[2024-12-22 08:42] LABS: Hematocrit 42.6 % (37.0-47.0); Hemoglobin 14.2 g/dL (12.0-15.0); Immature Granulocyte Percent A 0.3 % (0-0.5); Lymphocytes Absolute Auto 1.85 K/mm3 (0.9-3.2); Mean Corpuscular HGB Conc 33.3 g/dl (32-36); Mean Corpuscular Hemoglobin 29.0 pg (26-34); Mean Corpuscular Volume 86.9 fl (80-100); Nucleated Red Blood Cells Absolute Auto 0.000 K/mm3 (0.0-0.012); Nucleated Red Blood Cells Perc 0.0 % (0.0-0.2); Platelet Count Result 313 k/mm3 (150-375); Red Blood Count 4.90 M/mm3 (4.2-5.4); White Blood Count 6.9 K/mm3 (4.5-10.0)
[2024-12-22 08:58] LABS: Alanine Aminotransferase 29 U/L (6-35); Albumin Level 4.5 g/dL (3.5-5.1); Alkaline Phosphatase 75 U/L (38-126); Anion Gap 11 mmol/L (4-12); Aspartate Amino Transferase 29 U/L (14-36); Bilirubin,Total 0.5 mg/dL (0.2-1.3); Blood Urea Nitrogen 14 mg/dL (7-17); Calcium 9.6 mg/dL (8.4-10.2); Carbon Dioxide 25 mmol/L (22-30); Chloride 102 mmol/L (98-107); Cholesterol 217 mg/dL (0-200); Estimated Glomerular Filt Rate > 60; Glucose 85 mg/dL (65-110); HDL Direct 54 mg/dL; Potassium 3.7 mmol/L (3.4-5.0); Sodium 138 mmol/L (137-145); Total Protein 8.4 g/dL (6.3-8.2); Triglycerides 54 mg/dL (<150)
[2024-12-22 08:59] LABS: Add Urine Microscopic? YES; Appearance Urine Clear (Clear); Glucose Urine UA Negative (Negative); Leukocyte Esterase Ur 1+ LEU/UL (Negative); Need Manual Microscopic Reviewed; Nitrate Urine Negative (Negative); Non Pathogenic Casts 0-2; Specific Grav Ur 1.008 (1.001-1.035)
[2024-12-22 09:28] LABS: Thyroid Stimulating Hormone 1.770 uIU/mL (0.465-4.680)
[2024-12-22 10:34] LABS: Free T4 Free Thyroxine 1.66 ng/dL (0.78-2.19)
== END 2024-12-22 08:19 | disposition home or self-care (01) ==
LOC: ANHLAB 08:20
DX: Z00.00 Encounter for general adult medical examination without abnormal findings (principal)
CPT/HCPCS: 36415; 80053; 80061; 81001; 84439; 84443; 85025; 87086